=== PATIENT | male | born 1970 | race Two or more races ===

== ENCOUNTER → 2024-12-31 | Day surgery (SDC) | payer OTHER ==
[2024-12-27 08:43] VITALS: BP 136/65
[2024-12-27 08:44] LABS: BASO % 0.8 % (0.1-1.2); EOS # 0.23 (0.04-0.54); EOS % 3.9 % (0.7-7.0); LYMPH # 1.34 (1.18-3.74); LYMPH % 22.5 % (19.3-53.1); MEAN PLATELET VOLUME 12.50 fl (9.4-12.4); MONO # 0.46 (0.24-0.82); MONO % 7.7 % (4.7-12.5); NEUT # 3.86 (1.56-6.13); NEUT % 64.9 % (34.0-71.1); RED CELL DISTRIBUTION WIDTH 13.1 % (11.6-14.4)
[2024-12-27 08:49] LABS: URINE APPEARANCE Clear; URINE BILIRRUBIN Negative (NEGATIVE); URINE BLOOD Negative; URINE COLOR Yellow; URINE GLUCOSE Negative (NEGATIVE); URINE KETONE Negative (NEGATIVE); URINE LEUKOCYTE Trace; URINE NITRATE Negative; URINE PROTEIN Negative (NEGATIVE); URINE UROBILINOGEN 1.0 E.U./dl
[2024-12-27 08:53] LABS: URINE RBC 4.8 uL (0.0-20.8)
[2024-12-27 08:54] LABS: URINE BACTERIA 3.6 uL (0.0-1933); URINE CAST 0.14 uL (0.0-1.40); URINE EPITHELIAL CELLS 0.7 uL (0.0-38.8); URINE WBC 1.5 uL (0.0-23.2)
[2024-12-27 09:07] LABS: INR 1.11
[2024-12-27 09:50] LABS: ALT/SGPT 43.0 U/L (12-78); AST/SGOT 11.0 U/L (15-37); BILIRUBIN TOTAL 0.85 mg/dL (0.3-1.2); BUN CREA RATIO 18.0 (7.0-25.0); CREATININE SERUM 0.84 mg/dL (0.70-1.30); GFR 95.22; GLOBULINA 3.3 G/DL (2.4-3.5); GLUCOSE FASTING 100.0 mg/dL (65-100); OSMOLALITY SERUM 286.0 MOSM/KG (275-295)
[~2024-12-31] VITALS: Ht 175.3 cm; Wt 74.8 kg
[~2024-12-31] MED LIST: CEFAZOLIN SODIUM 1,000 MG VIAL ONE
== END | disposition home or self-care (01) ==
LOC: ADM 12-19 08:30 → CIR.AMB 07:00
PROVIDERS: ATTEND Surgery
DX: K80.20 Calculus of gallbladder without cholecystitis without obstruction (principal); Z53.09 Procedure and treatment not carried out because of other contraindication; R00.1 Bradycardia, unspecified